=== PATIENT | female | born 1960 | race Caucasian/White ===

== ENCOUNTER → 2017-11-06 13:15 | Outpatient (CLI) | payer OTHER, SELFPAY ==
--- NOTE | 2017-11-06 | DI.MRI.S_ITS ---
PROCEDURE: MR ANKLE RT WO CON INDICATIONS: RIGHT ANKLE PAIN/UNSPECIFIED CHRONICITY TECHNIQUE: Noncontrast sagittal T1 spin echo and T2 fast spin echo with fat saturation, axial proton density fast spin echo and T2 fast spin echo with fat saturation, coronal T1 spin echo and T2 fast spin echo with fat saturation through the ankle/hindfoot. COMPARISON: [facility] [place], CR, XR ANKLE 3+ VIEWS RIGHT, 10/29/2017, 13:58. FINDINGS: Image quality: Diagnostic. Bones and joints: There is bone marrow edema identified involving the cuboid without a definitive fracture evident. Additional subtle areas of marrow edema in present involving the middle and lateral cuneiforms. Degenerative marrow edema is noted involving the calcaneus and the talus. There is no acute fracture or dislocation. No suspicious osseous lesions are identified. Ankle mortise is well-maintained. There are no osteochondral defects involving the tibial plafond or talar dome. No significant joint effusions are present. There is a prominent plantar calcaneal spur with mild associated marrow edema. Medial structures: The deltoid ligament is intact. There is moderate thickening and increased signal involving the superomedial band of the spring ligament. The plantar components of the spring ligament are intact. The flexor hallucis longus, flexor digitorum longus, and tibial is posterior tendons are intact. A small amount of fluid is contained within their tendon sheaths. The posterior tibial nerve appears to be within normal limits through the region of the tarsal tunnel. Lateral structures: The anterior and posterior distal tibiofibular ligaments appear intact. There is thickening of the anterior talofibular ligament, which is otherwise intact. The calcaneofibular ligament and posterior talofibular ligament are intact. There is prominent thickening and diffuse increased signal of the peroneus longus and peroneus brevis tendons with intrasubstance partial-thickness tearing noted. There is at least a high-grade partial-thickness tear and possibly a full-thickness tear present involving the peroneus longus tendon as it passes under the cuboid. Edema within the overlying soft tissues is noted. There is normal fatty signal within the sinus tarsi. Anterior structures: The tibialis anterior, extensor hallucis longus, and extensor digitorum longus tendons appear intact. Posterior and plantar structures: Achilles tendon is intact. Medial and lateral bands of the plantar fascia are of slightly prominent in size, particularly involving the medial band. IMPRESSION: 1. There is at least a high-grade partial-thickness tear (likely complete) involving the peroneus longus tendon. There is moderate to high-grade intrasubstance partial-thickness tearing and prominent tendinopathy of the peroneus brevis tendon. 2. Edema of the cuboid may represent bone contusion. 3. Scarring of the lateral ankle ligaments. 4. Mild tenosynovitis of the flexor tendons. 5. Plantar calcaneal spur. Dictated by: Ankit Calhoun M.D. on 11/06/2017 at 15:19 Approved by: Ankit Calhoun M.D. on 11/06/2017 at 15:54
== END ==
PROVIDERS: Visit Provider Podiatrist
DX: M25.571 Pain in right ankle and joints of right foot (principal); S86.311A Strain of muscle(s) and tendon(s) of peroneal muscle group at lower leg level, right leg, initial encounter; M65.871 Other synovitis and tenosynovitis, right ankle and foot; M77.31 Calcaneal spur, right foot
CPT/HCPCS: 73721

== ENCOUNTER → 2023-07-31 10:31 | Outpatient (CLI) | payer OTHER, SELFPAY ==
--- NOTE | 2023-07-31 | DI.NM.S_ITS ---
PROCEDURE: NM BONE SCAN WHOLE BODY RADIOPHARMACEUTICAL: 21.2 mCi Tc-99m MDP IV. 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 Anterior and posterior views were acquired from vertex to feet. Additional left and right oblique views of the chest were obtained. COMPARISON: None. FINDINGS: Radiotracer uptake is seen in the urinary system and bladder, as expected. Symmetric calvarial uptake likely related to hyperostosis frontalis internus. scattered degenerative changes in the spine, and upper and lower extremities. Focal uptake along the right paraspinous region, along the posterior ribs in the mid and lower thoracic spine is seen, best appreciated on right posterior oblique view. No highly suspicious focus of uptake IMPRESSION: Multiple foci of uptake along the right posterior ribs, adjacent to the mid and lower thoracic spine. These may be post traumatic, not necessarily representing metastatic disease. No highly suspicious focus of uptake. Cross-sectional imaging comparison could be helpful. Dictated by: Rudi Walls M.D. on 07/31/2023 at 15:38 Approved by: Rudi Walls M.D. on 07/31/2023 at 16:00
== END ==
LOC: NUCM 10:34
PROVIDERS: PCP Family Medicine; Referring Provider Internal Medicine; Visit Provider Internal Medicine
DX: C50.812 Malignant neoplasm of overlapping sites of left female breast; C50.011 Malignant neoplasm of nipple and areola, right female breast; Z17.1 Estrogen receptor negative status [ER-]; Z17.0 Estrogen receptor positive status [ER+]
CPT/HCPCS: 78306; A9503

== ENCOUNTER 2024-06-29 09:23 | Day surgery (SDC) | payer OTHER, SELFPAY ==
[2024-06-23 12:25] VITALS: BMI 29.9
--- NOTE | 2024-06-29 | PATH_ITS ---
[facility] Accession Number: [id number] No. of containers..01 Tissue . 01 Material submitted: . endometrium - ENDOMETRIAL CURETTINGS . 01 Diagnosis: ENDOMETRIUM, CURETTAGE: Benign endometrial polyp. Background atrophic endometrium. Negative for endometrial intraepithelial neoplasia and malignancy. MRV 07/01/2024 1242 Local . 01 Electronically signed: . Vonnie Jacob DO, Pathologist NPI- [id number] . 01 Gross description: . Received in formalin with two patient identifiers and endometrial curettings, are multiple mas soft tissue fragments admixed with hemorrhagic material aggregating to 2.8 x 2.7 x 0.7 cm. Filtered and submitted in A1-A2. ([id number]) /MRV 06/30/2024 1734 Local . 01 Pathologist provided ICD-10: N84.0 . 01 CPT . 886161 Specimen Comment: A courtesy copy of this report has been sent to [phone] Performed at: [address] [facility] [address], [place], [place] [id number] MD Chris Wren MD Phone: [phone]
[2024-06-29 09:50] VITALS: BP 185/96; PULSE 86; RESP 16; TEMP 36.9; O2SAT 97
[2024-06-29] MEDS: LACTATED RINGERS 1,000 ML 42 ML IV (09:59)
[2024-06-29] MEDS: ACETAMINOPHEN 325 MG TABLET 975 MG PO (09:59)
--- NOTE | 2024-06-29 10:10 | PM.PREOP ---
Pre-operative Note Interval Note History & Physical reviewed/Exam performed by Physician: Yes Changes to H&P: No
--- NOTE | 2024-06-29 10:33 | SUR.OPER ---
Lithotomy on padded OR bed, head on pillow, arms secured on padded arm boards at <90 degrees abduction. Legs secured in padded yellow fins stirrups.
[2024-06-29 10:53] VITALS: BP 167/99; PULSE 100; RESP 18; TEMP 36.3; O2SAT 98
--- NOTE | 2024-06-29 10:53 | PM.OP.1 ---
Operative Date/Time/Diagnoses Date of procedure: 06/29/24 Time of procedure: 10:53 Pre-op diagnosis: Postmenopausal bleeding with thickened endometrium on ultrasound possible polyps Post-op diagnosis: same (Multiple intrauterine and end of cervical polyp with submucous/intracavitary fibroid) Procedure & Clinicians Procedure: Hysteroscopy with MyoSure resection of polyps and submucous fibroid and endometrial curettage Same procedure as scheduled: Yes Indications: Patient with postmenopausal bleeding with thickened endometrium on ultrasound and possible polyps by ultrasound. Surgeon: Kaleigh Granger Click Yes if Unassisted: Yes Anesthesia Type: General Operative Notes Findings: Multiple endometrial polyps and a large endocervical polyp with posterior wall submucous/intracavitary fibroid Closure Type: not applicable Specimen(s): other (Resected polyps and fibroid with endometrial curettage) Estimated Blood Loss (mL): 10 Blood products transfused: none Procedure in detail: The patient was brought to the operating room where she underwent general anesthesia. She was placed in low stirrups She was prepped and draped in usual sterile fashion with pulsatile stockings in place and functional, warming in place, no antibiotics indicated. A single-tooth tenaculum was placed on the anterior lip of the cervix and the uterus dilated to #8 Hegar dilator. The hysteroscope was placed into the uterus with a saline solution running and under constant suction. The small MyoSure was used to resect the fibroid down to the level of the endometrium and remove the uterine and endocervical polyps.. A endometrial curettage was performed. The fibroid, polyps, and the endometrial curettage was sent to pathology. The patient went to recovery room in good condition counts of instruments and sponges were correct. Fluid deficit 320 cc. Total fluid volume 1164 cc, final pressure 80 cutting time 1 minutes 59 seconds. Complications: none Post-operative Condition: stable Disposition: same day surgery Plan for aftercare: Home when awake and stable.
[2024-06-29 10:58] VITALS: BP 166/100; PULSE 96; RESP 16; O2SAT 96
[2024-06-29 11:03] VITALS: BP 167/90; PULSE 95; RESP 13; TEMP 36.3; O2SAT 97
[2024-06-29 11:10] VITALS: BP 166/95; PULSE 87; RESP 15; O2SAT 95
[2024-06-29 11:19] VITALS: BP 169/97; PULSE 90; RESP 18; O2SAT 92
== END 2024-06-29 11:42 | disposition home or self-care (01) ==
PROVIDERS: PCP Family Medicine; Referring Provider Specialist; Visit Provider Specialist
PROC: 0UDB8ZZ Extraction of Endometrium, Via Natural or Artificial Opening Endoscopic (ICD-10-PCS; CPT 58558; principal; 2024-06-29 11:45)
DX: N84.0 Polyp of corpus uteri (principal); D25.0 Submucous leiomyoma of uterus; R93.89 Abnormal findings on diagnostic imaging of other specified body structures; I10 Essential (primary) hypertension; Z87.891 Personal history of nicotine dependence; Z85.3 Personal history of malignant neoplasm of breast; Z92.21 Personal history of antineoplastic chemotherapy
CPT/HCPCS: 58558; J2704; J3010